=== PATIENT | female | born 1965 | race Caucasian/White ===

== ENCOUNTER → 2017-11-06 | Outpatient (CLI) | payer BC | LOC: RAD 13:28 | PROVIDERS: ATTEND Nurse Practitioner Women's Health | DX: Z12.31 Encounter for screening mammogram for malignant neoplasm of breast (principal) ==

== ENCOUNTER → 2017-11-13 | Outpatient (CLI) | payer BC ==
--- NOTE | 2017-11-13 18:15 | Diagnostic Imaging Report ---
EXAMINATION: Bilateral breast ultrasound. INDICATION: Bilateral breast implants with aspiration of its contents and calcifications seen on mammography. FINDINGS: The four quadrants of the breasts and retroareolar regions were scanned with no suspicious abnormality seen. In the left breast at 3 o'clock, zone an intramammary lymph node measuring 0.6 cm is seen. The implants are not well seen due to compression of its contents. IMPRESSION: No suspicious mass. Calcifications seen on mammography are likely benign. Six months followup bilateral mammogram is recommended to reevaluate these calcifications. BI-RADS 3. Dictated by: Dictated on workstation # [id number]
--- NOTE | 2017-11-13 18:15 | Diagnostic Imaging Report ---
Bilateral diagnostic mammogram with tomography evaluation. The current study was also evaluated with a Computer Aided Detection (CAD) system. COMPARISON: 11/07/16 INDICATION: History of bilateral implants that were aspirated. FINDINGS: Heterogeneously dense parenchyma is seen bilaterally. There are increased calcifications in the upper right breast and in the central aspect of the left breast. These are evaluated with focal magnification compression views which demonstrate evidence of layering in the lateral projection in the left central calcification suggestive of milk of calcium benign components. The upper right breast calcifications demonstrate no significant heterogeneity in favor of benign etiology. IMPRESSION: Bilateral breast calcifications favored to be benign. Ultrasound evaluation pending. ACR BI-RADS Category 0: Incomplete. (Needs additional imaging evaluation). Result letter will be mailed to the patient. Note: At least 10% of breast cancer is not imaged by mammography. Dictated by: Dictated on workstation # [id number]
== END ==
LOC: RAD 09:12
PROVIDERS: ATTEND Nurse Practitioner Women's Health
DX: R92.1 Mammographic calcification found on diagnostic imaging of breast (principal); Z98.82 Breast implant status
CPT/HCPCS: 77066

== ENCOUNTER → 2020-01-11 | Outpatient (CLI) | payer BC ==
--- NOTE | 2020-01-12 10:37 | Diagnostic Imaging Report ---
EXAM: Digital mammogram bilateral screening. COMPARISONS: 12/13/2018, 11/13/2017 and 11/07/2016. There are no current complaints. FINDINGS: The fibroglandular tissue in both breasts is heterogeneously dense. This does limit the sensitivity of this exam. The microcalcifications in the lateral retroareolar region of the left breast and the macrocalcifications in both breasts seen previously are again evident and not significantly changed. However in the interval since the previous exam, a small group of micro and macrocalcifications has developed in the 6 o'clock position of the left breast approximately 7-8 cm deep to the nipple. These calcifications are most likely benign but a compression/magnification view in the MLO and CC projections would be recommended to better characterize them. There is no primary or secondary sign of malignancy noted otherwise. IMPRESSION: Additional mammographic views of the newly developed calcifications in the 6 o'clock position of the left breast would be recommended for further study. ACR category 0. ACR BI-RADS Category 0: Incomplete. (Needs additional imaging evaluation). Result letter will be mailed to the patient. Note: At least 10% of breast cancer is not imaged by mammography. Dictated by: Dictated on workstation # [id number]
== END ==
LOC: RAD 15:46
PROVIDERS: ATTEND Physician Assistant
DX: Z12.31 Encounter for screening mammogram for malignant neoplasm of breast (principal); R92.0 Mammographic microcalcification found on diagnostic imaging of breast
CPT/HCPCS: 77067